=== PATIENT | female | born 1990 | race Hispanic/Latino ===

== ENCOUNTER 2019-10-11 15:31 | Emergency (ER) | payer OTHER ==
[~2019-10-11] VITALS: Ht 172.7 cm; Wt 156.5 kg
--- OUTSIDE RECORDS SUMMARY | ~2019-10-11 | XMS | Clinical Summary ---
Demographics + + + | Address | [address] | | | [place] [address] | + + + | Home Phone | | + + + | Preferred Language | Unknown | + + + | Marital Status | Single | + + + | Rastafarian Affiliation | Unknown | + + + | Race | Unknown | + + + | Ethnic Group | Unknown | + + + Author + + + | Author | [facility] | | | and [place] | + + + | Organization | [facility] | | | and [place] | + + + | Address | Unknown | + + + | Phone | Unavailable | + + + Support + + +---------+ + | Name | Relationship | Address | Phone | + + +---------+ + | Sam Braga | ECON | Unknown | | + + +---------+ + Care Team Providers + +------+ + | Care Director Of Operations Support Name | Role | Phone | + +------+ + | Bernie Goldstein | PCP | | + +------+ + Allergies No Known Allergies Medications + + + +---------+------+------+-------+ | Medication | Sig | Dispensed | Refills | Star | End | Statu | | | | | | t | Date | s | | | | | | Date | | | + + + +---------+------+------+-------+ | Etonogestrel | Inject into the | | 0 | 02/1 | | Activ | | (NEXPLANON SC) | skin. | | | 6/20 | | e | | | | | | 18 | | | + + + +---------+------+------+-------+ | guaiFENesin | Take by mouth. | | 0 | 09/2 | | Activ | | (MUCINEX PO) | | | | 1/20 | | e | | | | | | 18 | | | + + + +---------+------+------+-------+ | Loratadine | Take by mouth. | | 0 | 09/2 | | Activ | | (CLARITIN PO) | | | | 1/20 | | e | | | | | | 18 | | | + + + +---------+------+------+-------+ | pseudoePHEDrine | Take 30 mg by mouth | | 0 | 02/1 | | Activ | | (SUDAFED) 30 mg | every 6 (six) hours | | | 6/20 | | e | | tablet | as needed for | | | 18 | | | | | Congestion. | | | | | | + + + +---------+------+------+-------+ | EPINEPHrine | EpiPen 2-Toni 0.3 | | 0 | 09/2 | | Activ | | auto-injector 0.3 | mg/0.3 mL injection, | | | 1/20 | | e | | mg/0.3 mL injection | auto-injector Take | | | 18 | | | | | 1 auto as needed by | | | | | | | | injection route. | | | | | | + + + +---------+------+------+-------+ | phentermine 30 MG | Take 30 mg by mouth | | 0 | 01/0 | | Activ | | capsule | every morning before | | | 4/20 | | e | | | breakfast. | | | 19 | | | + + + +---------+------+------+-------+ Active Problems + + + | Problem | Noted Date | + + + | Bilateral carpal tunnel syndrome | 03/14/2017 | + + + Social History + +-------+ +--------+------+ | Tobacco Use | Types | Packs/Day | Years | Date | | | | | Used | | + +-------+ +--------+------+ | Never Smoker | | | | | + +-------+ +--------+------+ + + + | Sex Assigned at | Date Recorded | | | | + + + | Not on file | | + + + + + + + | Job Start Date | Occupation | Industry | + + + + | Not on file | Not on file | Not on file | + + + + + + + + | Travel History | Travel Start | Travel End | + + + + + + | No recent travel history available. | + + Last Filed Vital Signs + + + + + | Vital Sign | Reading | Time Taken | Comments | + + + + + | Blood Pressure | 149/83 | 09/29/2018 10:29 AM | | | | | PDT | | + + + + + | Pulse | 116 | 09/29/2018 10:29 AM | | | | | PDT | | + + + + + | Temperature | - | - | | + + + + + | Respiratory Rate | - | - | | + + + + + | Oxygen Saturation | - | - | | + + + + + | Inhaled Oxygen | - | - | | | Concentration | | | | + + + + + | Weight | 168.7 kg (372 lb) | 06/02/2018 8:41 AM | | | | | PST | | + + + + + | Height | 172.7 cm (5' 8") | 06/02/2018 8:41 AM | | | | | PST | | + + + + + | Body Mass Index | 56.56 | 06/02/2018 8:41 AM | | | | | PST | | + + + + + Plan of Treatment + + + + + | Health Maintenance | Due Date | Last Done | Comments | + + + + + | Vaccine: | | | | | Dtap/Tdap/Td (1 - | 1 | | | | Tdap) | | | | + + + + + | Cervical Cancer | | | | | Screening (Pap) | 1 | | | + + + + + | Vaccine: Influenza | | | | | (Season Ended) | 0 | | | + + + + + Results Not on filefrom Last 3 Months
--- OUTSIDE RECORDS SUMMARY | ~2019-10-11 | XMS | Clinical Summary ---
Demographics + + + | Address | [address] | | | [place] [address] | + + + | Home Phone | | + + + | Preferred Language | Unknown | + + + | Marital Status | Single | + + + | Hinduism Affiliation | Unknown | + + + | Race | Unknown | + + + | Ethnic Group | Unknown | + + + Author + + + | Author | [facility] | | | and [place] | + + + | Organization | [facility] | | | and [...] Team Providers + +------+ + | Care Crown Assembly Machine Operator Name | Role | Phone | + [...]
--- OUTSIDE RECORDS SUMMARY | ~2019-10-11 | XMS | Encounter Summary ---
Demographics + + + | Address | [address] | | | [place] [address] | + + + | Home Phone | | + + + | Preferred Language | Unknown | + + + | Marital Status | Single | + + + | Mandaen Affiliation | Unknown | + + + | Race | Unknown | + + + | Ethnic Group | Unknown | + + + Author + + + | Author | [facility] | | | and [place] | + + + | Organization | [facility] | | | [...] Team Providers + +------+ + | Care Programming Manager Name | Role | Phone | + +------+ + | Bernie Goldstein | PCP | | + +------+ + Encounter Details +--------+ + + + + | Date | Type | Department | Care Team | Description | +--------+ + + + + | 07/15/ | Orders Only | [facility] | Conversion | | | 2018 | | CONVERSION DEP [address] | Transaction, | | | | | [address] | Provider Unknown | | | | | KHURRAM GONZALEZ | [phone] | | | | | [phone] | | | | | | [phone] | | | +--------+ + + + + Social History + +-------+ +--------+------+ | Tobacco Use | Types | Packs/Day | Years | Date | | | | | Used | | + +-------+ +--------+------+ | Never Assessed | | | | | + +-------+ [...] recent travel history available. | + + documented as of this encounter Plan of Treatment Not on filedocumented as of this encounter Visit Diagnoses Not on filedocumented in this encounter"
--- OUTSIDE RECORDS SUMMARY | ~2019-10-11 | XMS | Encounter Summary ---
Demographics + + + | Address | [address] | | | [place] [address] | + + + | Home Phone | | + + + | Preferred Language | Unknown | + + + | Marital Status | Single | + + + | Amish Affiliation | Unknown | + + + | Race | Unknown | + + + | Ethnic Group | Unknown | + + + Author + + + | Author | [facility] | | | and [place] | + + + | Organization | [facility] | | | and [...] Team Providers + +------+ + | Care Bilingual Teacher Name | Role | Phone | + +------+ + | Bernie Goldstein | PCP | | + +------+ + Encounter Details +--------+ + + + + | Date | Type | Department | Care Team | Description | +--------+ + + + + | 02/17/ | Orders Only | [facility] | Conversion | | | 2018 | | CONVERSION [address]P [address] | Transaction, | | | | | [address] | Provider Unknown | | | | | KHURRAM GONZALEZ | [phone] | | | | | [phone] | | | | | | [phone] | | | +--------+ + + + [...]
--- OUTSIDE RECORDS SUMMARY | ~2019-10-11 | XMS | Clinical Summary ---
Demographics + + + | Address | [address] | | | [place] [address] | + + + | Home Phone | | + + + | Preferred Language | Unknown | + + + | Marital Status | Single | + + + | Mormonism Affiliation | Unknown | + + + | Race | Unknown | + + + | Ethnic Group | Unknown | + + + Author + + + | Author | [facility] (Historical as of | | | 01-13-19) | + + + | Organization | [facility] (Historical as of | | | 01-13-19) | + + + | Address | Unknown | + + + | Phone | Unavailable | + + + Support + + +---------+ + | Name | Relationship | Address | Phone | + + +---------+ + | Sam Braga | ECON | Unknown | | + + +---------+ + Care Team Providers + +------+ + | Care Process Environmental Technician Name | Role | Phone | + +------+ + | Bernie Goldstein PA-C | PP | | + +------+ + Allergies No Known Allergies Current Medications + + +-------+---------+------+------+-------+ | Prescription | Sig. | Disp. | Refills | Star | End | Statu | | | | | | t | Date | s | | | | | | Date | | | + + +-------+---------+------+------+-------+ | Etonogestrel | Inject into the | | | | | Activ | | (NEXPLANON SC) | skin. | | | | | e | + + +-------+---------+------+------+-------+ | pseudoephedrine | Take 30 mg by mouth | | | | | Activ | | (SUDAFED) 30 MG | every 6 (six) hours | | | | | e | | tablet | as needed for | | | | | | | | Congestion. | | | | | | + + +-------+---------+------+------+-------+ | EPINEPHrine | EpiPen 2-Toni 0.3 | | | | | Activ | | (EPIPEN 2-TONI) 0.3 | mg/0.3 mL injection, | | | | | e | | MG/0.3ML | auto-injector Take | | | | | | | auto-injector | 1 auto as needed by | | | | | | | | injection route. | | | | | | + + +-------+---------+------+------+-------+ | GuaiFENesin | Take by mouth. | | | | | Activ | | (MUCINEX PO) | | | | | | e | + + +-------+---------+------+------+-------+ | Loratadine | Take by mouth. | | | | | Activ | | (CLARITIN PO) | | | | | | e | + + +-------+---------+------+------+-------+ | phentermine | Take 30 mg by mouth | | | | | Activ | | (FASTIN) 30 MG | every morning before | | | | | e | | capsule | breakfast. | | | | | | + + +-------+---------+------+------+-------+ + + + + +------+------+-------+ | Hospital, Clinic, or | Ordered | Route | Frequency | Star | End | Statu | | Other Facility | Dose | | | t | Date | s | | Administered | | | | Date | | | | Medication | | | | | | | + + + + +------+------+-------+ | bupivacaine (PF) | 3 mL | INFILTRA | Once | 01/0 | | Activ | | (MARCAINE) 0.5 % | | TION | | 4/20 | | e | | injection 3 | | | | 19 | | | | mLIndications: | | | | | | | | Bilateral carpal | | | | | | | | tunnel syndrome | | | | | | | + + + + +------+------+-------+ | bupivacaine (PF) | 3 mL | INFILTRA | Once | 05/0 | | Activ | | (MARCAINE) 0.5 % | | TION | | 3/20 | | e | | injection 3 | | | | 19 | | | | mLIndications: | | | | | | | | Bilateral carpal | | | | | | | | tunnel syndrome | | | | | | | + + + + +------+------+-------+ | betamethasone | 12 mg | IX | Once | 05/0 | | Activ | | acetate-betamethason | | | | 3/20 | | e | | e sodium phosphate | | | | 19 | | | | (CELESTONE) | | | | | | | | injection 12 | | | | | | | | mgIndications: | | | | | | | | Bilateral carpal | | | | | | | | tunnel syndrome | | | | | | | + + + + +------+------+-------+ | triamcinolone | 80 mg | IX | Once | 05 | | Activ | | acetonide | | | | /20 | | e | | (KENALOG-40) | | | | 19 | | | | injection 80 | | | | | | | | mgIndications: | | | | | | | | Bilateral carpal | | | | | | | | tunnel syndrome | | | | | | | + + + + +------+------+-------+ Active Problems + + + | Problem [...] | | | + +-------+ +--------+------+ + +---+---+---+ | Smokeless Tobacco: | | | | | Never Used | | | | + +---+---+---+ + + + | Sex Assigned at | Date Recorded | | | | + + + | Not on file | | + + + Last Filed Vital Signs + + + + | Vital Sign | Reading | Time Taken | + + + + | Blood Pressure | 149/83 | 09/29/2018 10:27 AM PDT | + + + + | Pulse | 116 | 09/29/2018 10:27 AM PDT | + + + + | Temperature | - | - | + + + + | Respiratory Rate | - | - | + + + + | Oxygen Saturation | 98% | 09/29/2018 10:27 AM PDT | + + + + | Inhaled Oxygen | - | - | | Concentration | | | + + + + | Weight | 168.7 kg (372 lb) | 06/02/2018 8:40 AM PST | + + + + | Height | 172.7 cm (5' 8") | 06/02/2018 8:40 AM PST | + + + + | Body Mass Index | 56.56 | 06/02/2018 8:40 AM PST | + + + + Plan of Treatment + + + + + | Health Maintenance | Due Date | Last Done | Comments | + + + + + | Vaccine: | | | | | Dtap/Tdap/Td (1 - | 9 | | | | Tdap) | | | | + + + + + | Cervical Cancer | | | | | Screening (Pap) | 1 | | | + + + + + | Vaccine: Influenza | | | | | (Season Ended) | 0 | | | + + + + + Results Not on filefrom Last 3 Months Insurance + +--------+ +--------+-------+---------+ | Payer | Benefi | Subscriber | Type | Phone | Address | | | t Plan | ID | | | | | | / | | | | | | | Group | | | | | + +--------+ +--------+-------+---------+ | [place] - [place] [id number] | Medica | | | | | MODA | | re | | | | | | | | | | | | | | | | | | | | | | | | | | | | | | | | | | | | | | | | [place] - | | | | | | | MODA | | | | | + +--------+ +--------+-------+---------+ + +--------+ +--------+ + + | Guarantor Name | Accoun | Relation to | Date | Phone | Billing Address | | | t Type | Patient | of | | | | | | | | | | + +--------+ +--------+ + + | SAEID QUICK | Person | Self [birth year] Home: | [address] | | [place] | francisc[place] | | 1990 | [phone] | [address] [place] | | | [place] | | | [phone] | + +--------+ +--------+ + +
--- OUTSIDE RECORDS SUMMARY | ~2019-10-11 | XMS | Encounter Summary ---
Demographics + + + | Address | [address] | | | [place] [address] | + + + | Home Phone | | + + + | Preferred Language | Unknown | + + + | Marital Status | Single | + + + | Gnosticism Affiliation | Unknown | + + + | Race | Unknown | + + + | Ethnic Group | Unknown | + + + Author + + + | Author | [facility] | | | and [place] | + + + | Organization | [facility] | | | [...] Team Providers + +------+ + | Care Loin Puller Name | Role | Phone | + +------+ + | Bernie Goldstein | PCP | | + +------+ + Encounter Details +--------+ + + + + | Date | Type | Department | Care Team | Description | +--------+ + + + + | 06/02/ | Orders Only | [facility] | Conversion | | | 2019 | | CONVERSION DEP [address] | Transaction, | | | | | [address] | Provider Unknown | | | | | KHURRAM GONZALEZ | [phone] | | | | | [phone] | (Fax) | | | | | [phone] | | | +--------+ + + + [...]
--- OUTSIDE RECORDS SUMMARY | ~2019-10-11 | XMS | Encounter Summary ---
Demographics + + + | Address | [address] | | | [place] [address] | + + + | Home Phone | | + + + | Preferred Language | Unknown | + + + | Marital Status | Single | + + + | Muslim Affiliation | Unknown | + + + | Race | Unknown | + + + | Ethnic Group | Unknown | + + + Author + + + | Author | [facility] | | | and [place] | + + + | Organization | [facility] | | | and [...] Team Providers + +------+ + | Care Enrobing Machine Operator Name | Role | Phone [...] | | | | KHURRAM GONZALEZ | [phone] | | | | | [phone] | | | | | | [phone] | | | +--------+ + + + [...]
--- OUTSIDE RECORDS SUMMARY | ~2019-10-11 | XMS | Encounter Summary ---
Demographics + + + | Address | [address] | | | [place] [address] | + + + | Home Phone | | + + + | Preferred Language | Unknown | + + + | Marital Status | Single | + + + | Shinto Affiliation | Unknown | + + + [...] Team Providers + +------+ + | Care Immunologist Name | Role | Phone | + [...] Unknown | | | | | KHURRAM GONAZLEZ | [phone] | | | | | [phone] | | | | | | [phone] | | | +--------+ + + + [...]
--- OUTSIDE RECORDS SUMMARY | ~2019-10-11 | XMS | Encounter Summary ---
Demographics + + + | Address | [address] | | | [place] [address] | + + + | Home Phone | | + + + | Preferred Language | Unknown | + + + | Marital Status | Single | + + + | Anabaptist Affiliation | Unknown | + + + | Race | Unknown | + + + | Ethnic Group | Unknown | + + + Author + + + | Author | [facility] | | | and [place] | + + + | Organization | [facility] | | | [...] Team Providers + +------+ + | Care Physiotherapy Practice Manager Name | Role | Phone | [...] | | | | KHUR[facility] GONZALE[facility] | [phone] | | | | | [phone] | (Fax) | | | | | [phone] | | | +--------+ + + + [...]
--- OUTSIDE RECORDS SUMMARY | ~2019-10-11 | XMS | Clinical Summary ---
Demographics + + + | Address | [address] | | | [place] [address] | + + + | Home Phone | | + + + | Preferred Language | Unknown | + + + | Marital Status | Single | + + + | Rastafari Affiliation | Unknown | + + + | Race | Unknown | + + + | Ethnic Group | Unknown | + + + Author + + + | Author | [facility] (Historical as of | | | 01-13-19) | + + + | Organization | [facility] (Historical as of | | | 01-13-19) [...] Team Providers + +------+ + | Care Data Management Name | Role | Phone | + [...] [place] - MOD[place] | [place] - | [id number] | Medica | | | | | [...] CINDY | francisca/Sunil | | 1990 | [phone] | [address] [place] | | | [place] | | | [phone] | + +--------+ +--------+ + +
[~2019-10-11 15:31] MED LIST: ALLEGRA ALLERG180 MG PO; DAILY VALUE1 EACH PO; FLONASE ALLERG9.9 ML NS; HYDROCODONE-AC473 ML PO; KEFLEX500 MG PO; NEXPLANON68 MG SUB-Q; NORCO 5-325 TA1 EACH PO; SUDAFED 12-HOU120 MG PO
--- OUTSIDE RECORDS SUMMARY | 2019-10-11 15:36 | XMS ---
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 Huseyin has no Care Guidelines for this patient. Jill VISIT COUNT (12 MO.) 1 RENATA López TOTAL 1 NOTE: Visits indicate total known visits. ED/C VISIT TRACKING (12 MO.) 10/11/2019 15:32 RENATA Fernandez OR TYPE: Emergency COMPLAINT: - BACK PAIN INPATIENT VISIT TRACKING (12 MO.) No inpatient visits to display in this time frame [id number]
[2019-10-11] MEDS ORDERED: METHOCARBAMOL750 MG PO (16:08)
[2019-10-11] MEDS ORDERED: PREDNISONE20 MG PO (16:08)
[2019-10-11] MEDS ORDERED: TRAMADOL HCL50 MG PO (16:09)
[2019-10-11] MEDS ORDERED: MONTELUKAST SOD10 MG PO (16:09)
[2019-10-11] MEDS ORDERED: OLOPATADINE HCL5 ML OP (16:09)
[2019-10-11] MEDS ORDERED: QSYMIA 15 MG-91 EACH PO (16:09)
[2019-10-11] MEDS ORDERED: NORCO 5-325 TA1 EACH PO (16:13)
== END 2019-10-11 16:31 | disposition home or self-care (01) ==
LOC: ED 15:31
DX: M54.41 Lumbago with sciatica, right side (principal)
CPT/HCPCS: 96372; 99283; J1885

== ENCOUNTER 2019-11-16 05:45 | Day surgery (SDC) | payer OTHER ==
[~2019-11-16] VITALS: Ht 172.7 cm; Wt 154.2 kg
[~2019-11-16 05:45] MED LIST changes: +METHOCARBAMOL750 MG PO; +MONTELUKAST SOD10 MG PO; +OLOPATADINE HCL5 ML OP; +PREDNISONE20 MG PO; +QSYMIA 15 MG-91 EACH PO; +TRAMADOL HCL50 MG PO
[2019-11-16] MEDS ORDERED: HYDROCODON-ACE1 EA10 PO (07:36)
--- NOTE | 2019-11-16 07:44 | NUR ---
11/16/19 0744 Jaida Mauricio 0737- PT TO PACU IN SUPINE POSITION. EYES CLOSED. RESPONDS TO VOICE BUT KEEPS EYES CLOSED AND QUICKLY FALLS BACK TO SLEEP. BREATHING EASY AND UNLABORED WITH SP02 100% ON 12 L O2 VIA MASK. DRESSING CDI. CMS TO R EXTREMITY INTACT. 0741- PT ANSWERS QUESTIONS APPROPRIATELY BUT KEEPS EYES CLOSED. DENIES PAIN OR NAUSEA. BREATHING EASY AND UNLABORED WITH SP02 >95% ON RA. PT ABLE TO MOVE FINGERS ON COMMAND. R EXTREMITY ELEVATED WITH ICE.
--- NOTE | 2019-11-16 09:14 | OR ---
[facility] [address] [place], [place] [address] Signed DATE OF OPERATION: 11/16/2019 SURGEON: Lindsey Blanco MD PREOPERATIVE DIAGNOSIS: Right carpal tunnel syndrome. POSTOPERATIVE DIAGNOSIS: Right carpal tunnel syndrome. PROCEDURE PERFORMED: Right carpal tunnel release. GI TECHNICIAN: None. ANESTHESIA: Willits block. TOURNIQUET TIME: 20 minutes. 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 Right worse than left. She wished to proceed with carpal tunnel release. DESCRIPTION OF PROCEDURE: Once consent was obtained, she was taken to the operating room. After adequate anesthesia, she was placed on the operating room table. All downside pressure points well padded. The right arm was prepped and draped in a standard sterile fashion. The carpal tunnel was approached through a 1.5 cm incision in the distal wrist crease. This was carried through skin and subcutaneous tissue. The palmaris longus was identified, retracted and protected. Under direct loupe magnification, the transverse carpal ligament was dissected free of overlying soft tissue proximally and distally. It was then released and the nerve was visualized. The release was carried distally to its distal extent. The ligament released. The wound was copiously irrigated with antibiotic solution. The carpal tunnel was palpated using a [place] and found to be completely released. The skin was then closed with 3-0 nylon. We injected 8 mL of 0.25% plain Marcaine at the end the procedure. The wound was dressed with bacitracin, Adaptic, Electronically Signed By: LINDSEY BLANCO MD 11/16/19 0914 PATIENT NAME: SAEID WONG OPERATIVE REPORT DATE OF : 88 REPORT #: [id number] PHYSICIAN: LINDSEY BLANCO MD PCP: LILY GRAHAM PA-C REPORT IS CONFIDENTIAL AND NOT TO BE RELEASED WITHOUT AUTHORIZATION [facility] [address] [facility] [place], [place] [address] Signed 4 x 8s, and gauze. She tolerated the procedure well. All sponge, needle, and instrument counts were correct. Lindsey Blanco MD BA/MODL /[id number] Copies: ~ Electronically Signed By: LINDSEY BLANCO MD 11/16/19 0914 PATIENT NAME: SAEID WONG OPERATIVE REPORT DATE OF : [birth year] REPORT #: [id number] PHYSICIAN: LINDSEY BLANCO MD PCP: LILY GRAHAM PA-C REPORT IS CONFIDENTIAL AND NOT TO BE RELEASED WITHOUT AUTHORIZATION
== END 2019-11-16 08:35 | disposition home or self-care (01) ==
LOC: DS 05:45
PROVIDERS: Specialist
PROC: 01N50ZZ Release Median Nerve, Open Approach (ICD-10-PCS; principal; 2019-11-16 06:45)
DX: G56.01 Carpal tunnel syndrome, right upper limb (principal); F41.9 Anxiety disorder, unspecified; E66.9 Obesity, unspecified; Z68.43 Body mass index [BMI] 50.0-59.9, adult; Z79.899 Other long term (current) drug therapy
CPT/HCPCS: 01810; J0690; J1100; J1885; J2250; J2405; J2704; J2765; J3010; J7121

== ENCOUNTER 2019-12-28 07:05 | Day surgery (SDC) | payer OTHER ==
[~2019-12-28] VITALS: Ht 172.7 cm; Wt 154.2 kg
[~2019-12-28 07:05] MED LIST changes: +HYDROCODON-ACE1 EA10 PO
[2019-12-28] MEDS ORDERED: HYDROCODON-ACE1 EA10 PO (09:10)
--- NOTE | 2019-12-28 09:24 | NUR ---
12/28/19 0924 Luis Daniel Cramer REORIENTED TO TIME AND SITUATION. DENIES PAIN OR NAUSEA.
--- NOTE | 2019-12-31 11:13 | OR ---
[facility] [address] [place], [place] [address] Signed DATE OF OPERATION: 12/28/2019 SURGEON: Lindsey Blanco MD PREOPERATIVE DIAGNOSIS: Left carpal tunnel syndrome. POSTOPERATIVE DIAGNOSIS: Left carpal tunnel syndrome. PROCEDURE PERFORMED: Left carpal tunnel release. ANESTHESIA: Nanda block. TOURNIQUET TIME: 22 minutes. CAR WASH ATTENDANT AUTOMATIC: BRIEF HISTORY: Saeid is a 29-year-old female with bilateral carpal tunnel. She had undergone successful right release and wished to proceed with left. DESCRIPTION OF PROCEDURE: Once consent was obtained, she was taken to the operating room after adequate anesthesia. She was placed on operating table and all downside pressure points were well padded. The left arm was prepped and draped in the standard sterile fashion. The carpal tunnel was approached through a 1.5 cm incision in the distal wrist crease. This was carried underneath the palmaris longus, which was retracted and protected. Under loupe magnification, the transverse carpal ligament was dissected of overlying soft tissue and was released proximally a cm distally to the distal extent. The carpal tunnel was then palpated using a [place] and found to be completely released. The wound was closed again with antibiotic solution, closed with 3-0 nylon. We injected an 8 mL 0.25% plain Marcaine at the end of the procedure. Wound was dressed with bacitracin, Adaptic, 4 x 8s, and gauze. She tolerated the procedure well. All sponge, needle, and instrument counts were correct. Electronically Signed By: LINDSEY BLANCO MD 12/31/19 1113 PATIENT NAME: SAEID WONG OPERATIVE REPORT DATE OF : [birth year] REPORT #: [id number] PHYSICIAN: LINDSEY BLANCO MD PCP: LILY GRAHAM PA-C REPORT IS CONFIDENTIAL AND NOT TO BE RELEASED WITHOUT AUTHORIZATION [address] [address] Signed Lindsey Blanco MD BA/MODL /[id number] Copies: ~ Electronically Signed By: LINDSEY BLANCO MD 12/31/19 1113 PATIENT NAME: SAEID WONG OPERATIVE REPORT DATE OF : [birth year] REPORT #: [id number] PHYSICIAN: LINDSEY BLANCO MD PCP: LILY GRAHAM PA-C REPORT IS CONFIDENTIAL AND NOT TO BE RELEASED WITHOUT AUTHORIZATION
== END 2019-12-28 09:47 | disposition home or self-care (01) ==
LOC: DS 07:05
PROVIDERS: Specialist
PROC: 01N50ZZ Release Median Nerve, Open Approach (ICD-10-PCS; principal; 2019-12-28 09:15)
DX: G56.02 Carpal tunnel syndrome, left upper limb (principal); Z79.899 Other long term (current) drug therapy; Z98.890 Other specified postprocedural states
CPT/HCPCS: 01810; 84703; J0690; J2250; J2704; J7121